=== PATIENT | male | born 1955 | race Caucasian/White ===

== ENCOUNTER → 2020-03-19 | Outpatient (CLI) | payer OTHER ==
[~2020-03-19] MED LIST: CIPROFLOXACIN500 M1 PO; FLOMAX PO; OXYCODONE HCL5 M1 PO
== END ==
LOC: CAT 15:30
DX: Z13.6 Encounter for screening for cardiovascular disorders (principal); E78.00 Pure hypercholesterolemia, unspecified; I25.10 Atherosclerotic heart disease of native coronary artery without angina pectoris